=== PATIENT | female | born 1995 | race African-American/Black ===

== ENCOUNTER 2018-09-19 16:43 | Inpatient (IN) | payer MEDICAID ==
[~2018-09-19] VITALS: Ht 165.1 cm; Wt 52.8 kg
[2018-09-19] MEDS ORDERED: SOD CHLORIDE 0.9% 1,000 ML IV STA (18:08)
--- NOTE | 2018-09-19 18:15 | ERD ---
ER Documentation Chief Complaint Chief Complaint N/V 5 WKS HPI 21-year-old female G1, P0 who reports being 5 weeks with no reported medical history who presents with 2-day complaint of heavy vaginal bleeding as well as associated nausea and vomiting. Last menstrual period reported on August 03. Patient states bleeding got progressively worse today with her going through several pads. States she fainted while in the right aid earlier today. Has had remittent dull type pelvic discomfort and persistent nausea and vomiting and inability to take p.o. states she presented to [facility] and this was the first time she was informed that that she was via urine test. States she went to another clinic on [address] away but is unsure if the exact name of the clinic or name of [employer] physician who is attended to her. She otherwise denies chest pain, shortness of breath, dyspnea, abdominal pain. At time of examination patient is nontoxic-appearing but quite tearful. Triage vital signs normal. ROS All systems reviewed and are negative except as per history of present illness. Allergies Allergies: Coded Allergies: No Known Allergy (Unverified , 09/19/18) FmHx Family History: No diabetes, No coronary disease, No other Physical Exam Vitals Vital Signs Date Temp Pulse Resp B/P (MAP) Pulse Ox O2 O2 Flow FiO2 Time Delivery Rate 09/19/18 99.0 94 18 144/95 100 16:46 (111) Physical Exam I have reviewed the triage vital signs. Const: Well nourished, well developed, appears stated age Eyes: PERRL, no conjunctival injection HENT: NCAT, Neck supple without meningismus CV: RRR, Warm, well-perfused extremities RESP: CTAB, Unlabored respiratory effort GI: soft, tender to palpation to mid pelvic region, non-distended, no masses MSK: No gross deformities appreciated Skin: Warm, dry. No rashes Neuro: grossly non focal Psych: Appropriate mood and affect. Result Diagram: 09/19/181910 Results 24 hrs Laboratory Tests Test 09/19/18 19:11 White Blood Count 7.4 10^3/ul Red Blood Count 5.13 10^6/ul Hemoglobin 14.3 g/dl Hematocrit 43.0 % Mean Corpuscular Volume 83.8 fl Mean Corpuscular Hemoglobin 27.9 pg Mean Corpuscular Hemoglobin Concent 33.3 g/dl Red Cell Distribution Width 12.2 % Platelet Count 325 10^3/UL Mean Platelet Volume 11.8 fl Immature Granulocytes % 0.400 % Neutrophils % 55.5 % Lymphocytes % 34.9 % Monocytes % 8.1 % Eosinophils % 0.3 % Basophils % 0.8 % Nucleated Red Blood Cells % 0.0 /100WBC Immature Granulocytes # 0.030 10^3/ul Neutrophils # 4.1 10^3/ul Lymphocytes # 2.6 10^3/ul Monocytes # 0.6 10^3/ul Eosinophils # 0.0 10^3/ul Basophils # 0.1 10^3/ul Nucleated Red Blood Cells # 0.0 10^3/ul Urine Color YELLOW Urine Clarity SLIGHTLY CLOUDY Urine pH 6.0 Urine Specific [place] 1.020 Urine Ketones 2+ mg/dL Urine Nitrite NEGATIVE mg/dL Urine Bilirubin NEGATIVE mg/dL Urine Urobilinogen 1+ mg/dL Urine Leukocyte Esterase NEGATIVE Rony/ul Urine Microscopic RBC 149 /HPF Urine Microscopic WBC 1 /HPF Urine Squamous Epithelial Cells FEW /HPF Urine Bacteria FEW /HPF Urine Mucus FEW /HPF Urine Hemoglobin 2+ mg/dL Urine Glucose NEGATIVE mg/dL Urine Total Protein NEGATIVE mg/dl Beta HCG, Quantitative 46604.0 mIU/ml Current Medications Medications Dose Sig/Derek Start Time Status Last (Trade) Ordered Route PRN Stop Time Admin Dose Reason Admin Sodium 1,000 ml @ Q1H STAT 09/19/18 DC 09/19/18 Chloride 1,000 mls/hr IV 18:08 19:11 09/19/18 19:07 1,000 mg ONCE STAT 09/19/18 DC 09/19/18 Acetaminophen PO 21:13 21:17 (Tylenol 09/19/18 21:14 Tab) Procedures/MDM 23 ear old patient presents with 2 days vaginal bleeding. Patient is 6-7 weeks by LMP. Per discussion with on-call [employer] physician patient to be admitted for further monitoring and care. Differential missed or ectopic . Patient hemodynamically stable at the time of presentation and throughout ED stay. Patient otherwise in her normal state of health and non-septic in appearance. Plan CBC, UA, bHCG, Type&Screen. Beta hCG greater than 32,000 Ultrasound with no intrauterine gestation visualized DISPOSITION PLAN: [place] to [facility] [employer] service for further care and management Disclaimer: Inadvertent spelling and grammatical errors are likely due to EHR/dictation software use and do not reflect on the overall quality of patient care. Also, please note that the electronic time recorded on this note does not necessarily reflect the actual time of the patient encounter. Departure Diagnosis: Primary Impression: Vaginal bleeding affecting early Condition: Stable Patient Instructions: Vaginal Bleed in Referrals: [facility] YOU HAVE RECEIVED A MEDICAL SCREENING EXAM AND THE RESULTS INDICATE THAT YOU DO NOT HAVE A CONDITION THAT REQUIRES URGENT TREATMENT IN THE EMERGENCY DEPARTMENT. FURTHER EVALUATION AND TREATMENT OF YOUR CONDITION CAN WAIT UNTIL YOU ARE SEEN IN YOUR DOCTORS OFFICE WITHIN THE NEXT 1-2 DAYS. IT IS YOUR RESPONSIBILITY TO MAKE AN APPOINTMENT FOR FOLOW-UP CARE. IF YOU HAVE A PRIMARY DOCTOR --you should call your primary doctor and schedule an appointment IF YOU DO NOT HAVE A PRIMARY DOCTOR YOU CAN CALL OUR PHYSICIAN REFERRAL HOTLINE AT IF YOU CAN NOT AFFORD TO SEE A PHYSICIAN YOU CAN CHOSE FROM THE FOLLOWING [facility] [address] [facility]. [facility] [address] [facility] [facility] [address] [facility] [facility] [address] [facility] [facility] [facility] [address] [facility]. [facility]. [address] Additional Instructions: Call your primary care doctor TOMORROW for an appointment during the next 2-3 days.See the doctor sooner or return here if your condition worsens before your appointment time. CHRIS ESPINAL PA-C September 19, 2018 18:15
[2018-09-19] MEDS ORDERED: ACETAMINOPHEN 500 MG TAB PO STA (21:13)
[2018-09-19] MEDS ORDERED: ONDANSETRON 4 MG INJ IV PRN (22:00)
[2018-09-19] MEDS ORDERED: ACETAMINOPHEN 325 MG TAB PO PRN (22:00)
--- NOTE | 2018-09-19 22:15 | HP ---
Date/Time of Note Date/Time of Note DATE: 09/19/18 TIME: 22:14 Assessment/Plan VTE Prophylaxis Pharmacological prophylaxis: other (Patient is ambulating) Lines/Catheters IV Catheter Type (from Nrsg): Saline Lock Assessment/Plan Assessment/Plan Most likely SAB versus less likely ectopic Patient admitted for observation and repeat quantitative beta-hCG Result Diagram: 09/19/18 1911 Results 24hrs Laboratory Tests Test 09/19/18 19:11 White Blood Count 7.4 Red Blood Count 5.13 Hemoglobin 14.3 Hematocrit 43.0 Mean Corpuscular Volume 83.8 Mean Corpuscular Hemoglobin 27.9 L Mean Corpuscular Hemoglobin Concent 33.3 Red Cell Distribution Width 12.2 Platelet Count 325 Mean Platelet Volume 11.8 H Immature Granulocytes % 0.400 Neutrophils % 55.5 Lymphocytes % 34.9 Monocytes % 8.1 Eosinophils % 0.3 Basophils % 0.8 Nucleated Red Blood Cells % 0.0 Immature Granulocytes # 0.030 Neutrophils # 4.1 Lymphocytes # 2.6 Monocytes # 0.6 Eosinophils # 0.0 Basophils # 0.1 Nucleated Red Blood Cells # 0.0 Urine Color YELLOW Urine Clarity SLIGHTLY CLOUDY A Urine pH 6.0 Urine Specific [place] 1.020 Urine Ketones 2+ H Urine Nitrite NEGATIVE Urine Bilirubin NEGATIVE Urine Urobilinogen 1+ H Urine Leukocyte Esterase NEGATIVE Urine Microscopic RBC 149 H Urine Microscopic WBC 1 Urine Squamous Epithelial Cells FEW Urine Bacteria FEW A Urine Mucus FEW A Urine Hemoglobin 2+ H Urine Glucose NEGATIVE Urine Total Protein NEGATIVE Beta HCG, Quantitative 07363.0 HPI/ROS Admit Date/Time Admit Date/Time Hx of Present Illness 21-year-old female with LMP sometime in July presents with chief complaint of vaginal bleeding and pelvic pain in the last 2 days Patient is hemodynamically stable Quantitative beta-hCG 32,460 Pelvic ultrasound no IUP PMH/Family/Social Past Medical History Medications Current Medications Ondansetron HCl (Zofran Inj) 4 mg BRIDGE ORDER PRN IV NAUSEA/VOMITING; Start 09/19/18 at 22:00; Stop 09/20/18 at 21:59 Acetaminophen (Tylenol Tab) 650 mg ER BRIDGE PRN PO .MILD PAIN 1-3 OR TEMP; Start 09/19/18 at 22:00; Stop 09/20/18 at 21:59 Coded Allergies: No Known Allergy (Unverified , 09/19/18) Social History Smoking Status: Never smoker Exam/Review of Systems Vital Signs Vitals Vital Signs Date Temp Pulse Resp B/P (MAP) Pulse Ox O2 O2 Flow FiO2 Time Delivery Rate 09/19/18 99.0 94 18 144/95 100 16:46 (111) Exam Constitutional: alert, oriented, well developed Psych: no complaints, nl mood/affect Head: normocephalic, atraumatic Eyes: nl conjunctiva, EOMI, nl lids, nl sclera, PERRL ENMT: nl external ears & nose, nl lips & teeth, nl nasal mucosa & septum Neck: supple, non-tender Respiratory: clear to auscultation, normal air movement Cardiovascular: regular rate and rhythm, nl pulses Gastrointestinal: soft, nl liver, spleen, non-tender Musculoskeletal: nl extremities to inspection Extremities: normal pulses 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 CLINICAL INDICATION: vaginal bleeding TECHNIQUE: Multiple sonographic images of the pelvis were obtained utilizing a transabdominal technique. The images were reviewed on a PACS workstation. COMPARISON: None. FINDINGS: The uterus is normal in size and demonstrates a normal appearance of the myometrium. The uterus measures 8.1 x 3.9 x 4.4 cm in size. The endometrial stripe is heterogeneous in appearance and has the thickness of 6 mm. No intrauterine gestation is noted. The ovaries are normal in size and echogenicity. Normal Doppler flow is identified in both ovaries. The right ovary measures 3.1 x 2.3 x 3.4 cm. There is a small corpus luteum cyst in the right ovary. The left ovary measures 3.8 x 1.6 x 3.3 cm. No free fluid is present within the pelvis.. RPTAT: AA IMPRESSION: No intrauterine gestation visualized. Differential diagnosis includes early , missed or ectopic . Follow-up ultrasound and HCG levels is recommended. .Ernst Tavera MD, Date Time Electronically viewed and signed by .Ernst Tavera MD, on 09/19/2018 19:02 .S/ CC: CHRIS ESPINAL PA-C [id number] ANIL BURTON MD September 19, 2018 22:15
[2018-09-19 23:50] VITALS: BP 118/72; PULSE 64; RESP 18
[2018-09-20 00:30] VITALS: Ht 165.1 cm; Wt 52.8 kg
[2018-09-20] MEDS ORDERED: ACETAMINOPHEN 325 MG TAB PO PRN (00:30)
[2018-09-20] MEDS ORDERED: IBUPROFEN 600 MG TAB PO PRN (00:30)
[2018-09-20 00:41] VITALS: BP 118/72; PULSE 64; RESP 18
[2018-09-20 02:20] VITALS: BP 121/67; PULSE 65; RESP 18
[2018-09-20 08:00] VITALS: BP 111/66; PULSE 94; RESP 17
--- NOTE | 2018-09-20 12:11 | DS ---
Date/Time of Note Date/Time of Note DATE: 09/20/18 TIME: 12:07 Discharge Summary Admission/Discharge Info Admit Date/Time September 19, 2018 at 21:59 Discharge Date/Time September 20, 2018 Discharge Diagnosis SAB Patient Condition: Good Hx of Present Illness 21-year-old female with LMP sometime in July (patient is not exactly sure) presents with chief complaint of vaginal bleeding and pelvic pain in the last 2 days Patient is hemodynamically stable Quantitative beta-hCG 32,460 Pelvic ultrasound no IUP Hospital Course Patient was continuously observed for 24 hours and repeat quantitative beta-hCG dropping significantly and consistent with spontaneous AB Patient instructed to return to the emergency department for repeat quantitative beta-hCG in 1 week Patient instructed that the beta-hCG needs to be followed down to 0 Patient instructed to return to the emergency department immediately if she experiences severe pelvic pain, heavy vaginal bleeding or fever Hematology - 72 Hrs Test 09/19/18 19:11 Hematocrit 43.0 % (37.0-47.0) Hemoglobin 14.3 g/dl (12.0-16.0) Mean Corpuscular Hemoglobin 27.9 pg (29.0-33.0) L Mean Corpuscular Hemoglobin Concent 33.3 g/dl (32.0-37.0) Mean Corpuscular Volume 83.8 fl (82.0-101.0) Mean Platelet Volume 11.8 fl (7.4-10.4) H Platelet Count 325 10^3/UL (140-415) Red Blood Count 5.13 10^6/ul (4.20-5.40) Red Cell Distribution Width 12.2 % (11.5-14.5) White Blood Count 7.4 10^3/ul (4.8-10.8) Chemistry Test 09/19/18 19:11 09/20/18 08:27 Beta HCG, Quantitative 34389.0 mIU/ml 14051.0 mIU/ml Primary Care Provider Care Physician No Primary Pending Labs Laboratory Tests Test 09/19/18 19:11 09/20/18 08:27 White Blood Count 7.4 10^3/ul (4.8-10.8) Red Blood Count 5.13 10^6/ul (4.20-5.40) Hemoglobin 14.3 g/dl (12.0-16.0) Hematocrit 43.0 % (37.0-47.0) Mean Corpuscular Volume 83.8 fl (82.0-101.0) Mean Corpuscular Hemoglobin 27.9 pg (29.0-33.0) Mean Corpuscular Hemoglobin Concent 33.3 g/dl (32.0-37.0) Red Cell Distribution Width 12.2 % (11.5-14.5) Platelet Count 325 10^3/UL (140-415) Mean Platelet Volume 11.8 fl (7.4-10.4) Immature Granulocytes % 0.400 % (0.001-0.429) Neutrophils % 55.5 % (39.0-77.0) Lymphocytes % 34.9 % (15.0-51.0) Monocytes % 8.1 % (0.0-11.0) Eosinophils % 0.3 % (0.0-7.0) Basophils % 0.8 % (0.0-2.0) Nucleated Red Blood Cells % 0.0 /100WBC (0.0-0.0) Immature Granulocytes # 0.030 10^3/ul (0.0-0.031) Neutrophils # 4.1 10^3/ul (1.6-7.5) Lymphocytes # 2.6 10^3/ul (0.8-2.9) Monocytes # 0.6 10^3/ul (0.3-0.9) Eosinophils # 0.0 10^3/ul (0.0-0.5) Basophils # 0.1 10^3/ul (0.0-0.1) Nucleated Red Blood Cells # 0.0 10^3/ul (0.0-0.0) Urine Color YELLOW (YELLOW) Urine Clarity SLIGHTLY CLOUDY (CLEAR) Urine pH 6.0 (5.0-9.0) Urine Specific [place] 1.020 (1.003-1.030) Urine Ketones 2+ mg/dL (NEGATIVE) Urine Nitrite NEGATIVE mg/dL (NEGATIVE) Urine Bilirubin NEGATIVE mg/dL (NEGATIVE) Urine Urobilinogen 1+ mg/dL (NEGATIVE) Urine Leukocyte Esterase NEGATIVE Rony/ul Urine Microscopic RBC 149 /HPF (0-5) Urine Microscopic WBC 1 /HPF (0-5) Urine Squamous Epithelial Cells FEW /HPF (FEW) Urine Bacteria FEW /HPF (NONE SEEN) Urine Mucus FEW /HPF (NONE SEEN) Urine Hemoglobin 2+ mg/dL (NEGATIVE) Urine Glucose NEGATIVE mg/dL (NEGATIVE) Urine Total Protein NEGATIVE mg/dl (NEGATIVE) Beta HCG, Quantitative 63142.0 mIU/ml 65494.0 mIU/ml Microbiology Date/Time Source Procedure Growth Status 09/19/18 19:11 Clean Catch Urine Urine Culture - Preliminary NO Resulted GROWTH AFTER 24 HOURS ANIL BURTON MD September 20, 2018 12:11
== END 2018-09-20 13:10 | disposition home or self-care (01) | DRG 833 ==
LOC: FTE 16:43 → 5EC 21:59
PROVIDERS: ADMIT Obstetrics & Gynecology Gynecology; ATTEND Obstetrics & Gynecology Gynecology
DX: O20.9 Hemorrhage in early pregnancy, unspecified (principal); Z3A.01 Less than 8 weeks gestation of pregnancy
CPT/HCPCS: 76801; 81001; 84702; 85025; 86900; 86901; 87086; J7030